=== PATIENT | female | born 1955 | race Caucasian/White ===

== ENCOUNTER 2019-06-08 13:09 | Inpatient (IN) | payer MEDICARE, MEDICAID ==
[~2019-06-08] VITALS: Ht 162.6 cm; Wt 100.2 kg
[2019-06-08 13:17] VITALS: BP 147/71
[2019-06-08] MEDS ORDERED: PROAIR HFA8.5 GM (13:29)
[2019-06-08] MEDS ORDERED: TRAMADOL 50 MG50 MG PO (13:29)
[2019-06-08] MEDS ORDERED: LISINOPRIL20 MG PO (13:29)
[2019-06-08] MEDS ORDERED: SYNTHROID75 MCG PO (13:29)
[2019-06-08] MEDS ORDERED: SINGULAIR 10 MG10 M1 PO (13:29)
[2019-06-08] MEDS ORDERED: ALBUTEROL2.5 MG/0.1 INH (13:30)
[2019-06-08] MEDS ORDERED: OMEPRAZOLE40 MG PO (13:30)
[2019-06-08] MEDS ORDERED: CYCLOBENZAPRINE5 MG PO (13:30)
[2019-06-08 13:52] LABS: ABSOLUTE EOSINOPHILS 0.2 thou/uL (0.0-0.7); ABSOLUTE LYMPHOCYTES 0.6 thou/uL (0.8-5.3); ABSOLUTE MONOCYTES 0.6 thou/uL (0.0-1.2); ABSOLUTE NEUTROPHILS 4.8 thou/uL (1.6-8.1); BASOPHILS 0.5 %; EOSINOPHILS 2.8 %; HEMATOCRIT 41.8 % (37.0-47.0); HEMOGLOBIN 14.1 gm/dL (12.0-15.0); MCH 31.3 pg (26.0-34.0); MCHC 33.7 g/dL (28.0-37.0); MCV 92.9 fL (80.0-100.0); MONOCYTES 9.7 %; MPV 7.9 fl. (7.2-11.1); NUCLEATED RBCS 0 /100WBC; PLATELET COUNT* 222 thou/uL (150-400); RDW-CV 15.1 % (10.5-14.5); WBC 6.2 thou/uL (4.0-11.0)
[2019-06-08 13:57] LABS: ANION GAP 9 mmol/L (7-16); BUN 11 mg/dL (7-18); CALCIUM 8.7 mg/dL (8.5-10.1); CHLORIDE 105 mmol/L (98-107); CO2 25 mmol/L (21-32); GLUCOSE 121 mg/dL (70-99); POTASSIUM 4.5 mmol/L (3.5-5.1); SODIUM 139 mmol/L (136-145)
[2019-06-08 13:59] LABS: APTT 23.8 Seconds (25.0-31.3); PROTIME 9.9 Seconds (9.20-11.50)
[2019-06-08 14:12] LABS: ALBUMIN 3.9 g/dL (3.4-5.0); ALKALINE PHOSPHATASE 66 U/L (46-116); CK-MB MASS 0.6 ng/mL (<0.5-3.6); NT-PRO BRAIN NAT PEPTIDE 31 pg/mL (<300); SGOT 37 U/L (15-37); SGPT 48 U/L (30-65); TOTAL BILIRUBIN 0.4 mg/dL (<0.1-1.0); TOTAL PROTEIN 7.2 g/dL (6.4-8.2); TROPONIN-I LEVEL <0.06 ng/mL (<0.06)
[2019-06-08 14:12] LABS: URINE BILIRUBIN NEGATIVE (Negative); URINE BLOOD NEGATIVE (Negative); URINE CLARITY CLEAR; URINE COLOR YELLOW; URINE GLUCOSE-RANDOM NEGATIVE (Negative); URINE KETONES NEGATIVE (Negative); URINE LEUKOCYTES-REFLEX NEGATIVE (Negative); URINE NITRITE-REFLEX NEGATIVE (Negative); URINE PROTEIN NEGATIVE (Negative); URINE SPECIFIC GRAVITY 1.015 (1.005-1.030); URINE UROBILINOGEN 0.2 E.U./dl (0.2-1.0)
--- NOTE | 2019-06-08 14:28 | EKG ---
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
[2019-06-08 15:45] VITALS: BP 119/64
[2019-06-08 16:06] LABS: HDL CHOLESTEROL 33 mg/dL (>40); TRIGLYCERIDE 118 mg/dL (<150); VLDL 24 mg/dL (<40)
[2019-06-08 16:10] LABS: CHOLESTEROL < 50 mg/dL (<200); LDL CHOLESTEROL -6 mg/dL (<100); SERUM ASSESSMENT Clear; TC:HDL 1.5 Ratio (Not establshd)
[2019-06-08 16:14] VITALS: BP 144/62
--- NOTE | 2019-06-08 16:48 | 2DMMODE ---
[place] [address] 2 D/M-MODE ECHOCARDIOGRAM Name: FITZ MANRIQUEZ Room: [address] [place] [facility]#: [id number] Admission: 06/08/19 Attend Phys: Patricia Santana, Discharge: Date of : 53 Date of Service: 06/08/19 1647 Report #: [id number] THIS REPORT FOR: //name// APPROVED REPORT Study performed: 06/08/2019 16:01:45 EXAM: Comprehensive 2D, Doppler, and color-flow Echocardiogram Patient Location: In-Patient Room #: 231 Status: routine BSA: 1.92 HR: 74 bpm BP: 119/64 mmHg Rhythm: NSR Other Information Study Quality: Technically Limited Indications CVA/TIA Echo Enhancing Agent Indication: Rule out Shunt Agent(s) / Amount(s) Used: Agitated Saline 10 cc Comments: Bubble study was technically difficult. Hard to see atrium 2D Dimensions IVSd: 11.68 (7-11mm) LVOT Diam: 19.11 (18-24mm) LVDd: 39.39 mm PWd: 10.69 (7-11mm) Ascending Ao: 31.78 (22-36mm) LVDs: 23.91 (25-40mm) Aortic Root: 31.55 mm Volumes Left Atrial Volume (Systole) LA ESV Index: 9.80 mL/m2 Aortic Valve AoV Peak John.: 1.15 m/s AO Peak Gr.: 5.28 mmHg LVOT Max P.24 mmHg AO Mean Gr.: 2.89 mmHg LVOT Mean P.86 mmHg LVOT Max V: 1.25 m/s AO V2 VTI: 18.57 cm LVOT Mean V: 0.78 m/[place] [address] 2 D/M-MODE ECHOCARDIOGRAM Name: FITZ MANRIQUEZ Room: [address] [place] .R.#: [id number] Admission: 06/08/19 Attend Phys: Patricia Santana, Discharge: Date of : 53 Date of Service: 06/08/19 1647 Report #: [id number] ZAIN (VTI): 3.38 cm2 LVOT V1 VTI: 21.90 cm Mitral Valve E/A Ratio: 0.73 MV Decel. Time: 229.99 ms MV E Max John.: 0.54 m/s MV PHT: 66.70 ms MVA (PHT): 3.30 cm2 TDI E/Lateral E': 5.40 E/Medial E': 5.40 Medial E' John.: 0.10 m/s Lateral E' John.: 0.10 m/s Pulmonary Valve PV Peak John.: 0.90 m/s PV Peak Gr.: 3.21 mmHg Left Ventricle The left ventricle is normal size. There is normal LV segmental wall motion. There is normal left ventricular wall thickness. Left ventricular systolic function is normal. The left ventricular ejection fraction is within the normal range. LVEF is 60-65%. Grade I - abnormal relaxation pattern. Right Ventricle The right ventricle is normal size. The right ventricular systolic function is normal. Atria The left atrium size is normal. Interatrial septum is intact without evidence of ASD or PFO. The right atrium size is normal. Aortic Valve The aortic valve is not well visualized. No aortic regurgitation is present. There is no aortic valvular stenosis. Mitral Valve The mitral valve is normal in structure. There is no mitral valve regurgitation noted. No evidence of mitral valve stenosis. Tricuspid Valve The tricuspid valve is normal in structure. There is no tricuspid valve regurgitation noted. Pulmonic Valve Pulmonic valve is not well visualized. There is no pulmon[place] [address] 2 D/M-MODE ECHOCARDIOGRAM Name: FITZ MANRIQUEZ Room: [address] [place] M.R.#: [id number] Admission: 06/08/19 Attend Phys: Patricia Santana, Discharge: Date of : 53 Date of Service: 06/08/19 1647 Report #: [id number] regurgitation. Great Vessels The aortic root is normal in size. IVC is normal in size and collapses >50% with inspiration. Pericardium There is no pericardial effusion. <Conclusion> LVEF is 60-65%. Interatrial septum is intact without evidence of ASD or PFO. <ELECTRONICALLY SIGNED> By: Mani Luo MD, FACC 06/08/19 164 46 46 Mani Luo MD, FACC /INF
--- NOTE | 2019-06-08 18:12 | NUR ---
PT A/O, NIH 0. TELE TRACKING SR AND ALL VSS ON ROOM AIR. DENIES CP, SOA. PASSED NURSING BEDSIDE SWALLOW. EDUCATED ON SAFETY AND PLAN OF CARE. PLEASE SEE ASSESSMENTFOR ADDITIONAL INFORMATION. WILL CONT TO MONITOR
[2019-06-08 19:05] VITALS: BP 149/82
[2019-06-09] VITALS: BP 113/44
[2019-06-09 04:00] VITALS: BP 128/55
[2019-06-09 04:47] LABS: HEMOGLOBIN 13.7 gm/dL (12.0-15.0); MCH 30.9 pg (26.0-34.0); MCHC 33.3 g/dL (28.0-37.0); MCV 92.8 fL (80.0-100.0); MPV 7.8 fl. (7.2-11.1); RBC 4.41 mil/uL (4.20-5.00); RDW-CV 15.7 % (10.5-14.5); WBC 5.8 thou/uL (4.0-11.0)
[2019-06-09 05:06] LABS: CALCIUM 8.7 mg/dL (8.5-10.1); MAGNESIUM 1.9 mg/dL (1.8-2.4); POTASSIUM 3.8 mmol/L (3.5-5.1)
[2019-06-09 05:10] LABS: GLYCOHEMOGLOBIN (HGB A1C) 5.4 % (4.8-5.6)
--- NOTE | 2019-06-09 05:13 | NUR ---
ASSUMED CARE OF PT AT 1900. PT IS ALERT AND ORIENTED. VSS. PERRLA. NO COMPLAINTS OF PAIN. NIH IS 0. PT IS IN SINUS RYTHM ON THE TELEMETRY. PT IS RESTING COMFORTABLY IN BED. RESPIRATIONS ARE EVEN AND NONLABORED. WILL CONTINUE TO MONITOR PT.
[2019-06-09 08:00] VITALS: BP 137/67
[2019-06-09 12:00] VITALS: BP 145/67
--- NOTE | 2019-06-09 12:32 | NUR ---
ASSUMED PT CARE AT 0800, AOX4, UP SBA, O2 SAT 90'S RA. TRACING SR ON TELE. DENIES PAIN. NIH SCORE O. FOR OT/PT, FOR US CAROTID. LAST BM 06/08/19. VSS, AM ASSESSMENT CHARTED. MEDS GIVEN PER MAR. HOURLY ROUNDING, CALL LIGHT WITHIN REACH. WILL CONTINUE TO MONITOR.
[2019-06-09 17:46] VITALS: BP 119/64
[2019-06-09 23:45] VITALS: BP 102/52
[2019-06-10 03:30] VITALS: BP 108/48
[2019-06-10 04:38] LABS: CHOLESTEROL 123 mg/dL (<200); HDL CHOLESTEROL 28 mg/dL (>40); LDL CHOLESTEROL 67 mg/dL (<100); TC:HDL 4.4 Ratio (Not establshd); TRIGLYCERIDE 140 mg/dL (<150); VLDL 28 mg/dL (<40)
[2019-06-10 04:40] LABS: SERUM ASSESSMENT Clear
[2019-06-10 07:00] VITALS: BP 157/72
--- NOTE | 2019-06-10 07:33 | NUR ---
PT CARE ASSUMED AT 1930. SAT MAINTAINED IN RA. ALERT AND ORIENTED X4. CALL LIGHT WITHIN REACH AND BED IN LOW POSITION. DENIES PAIN AND SOB. HOURLY ROUNDING DONE FOR PT SAFETY.
--- NOTE | 2019-06-10 09:30 | NUR ---
INITAL ASSESSMENT COMPLETED CHARTED. VSS. TRACING SR ON MONITOR. PT DENIES PAIN, SOA, CP, N/V/D. HOURLY ROUNDING IN PLACE FOR PT SAFETY. CLWR.
[2019-06-10] MEDS ORDERED: ASPIRIN325 PO (10:27)
[2019-06-10 11:40] VITALS: BP 157/72
== END 2019-06-10 12:15 | disposition home or self-care (01) | DRG 64 ==
LOC: M.ERS 13:09 → M.2W 14:49 → M.TBA-ER 14:49 → M.2W 15:59
PROVIDERS: Family Medicine; ADMIT Internal Medicine
DX: I63.9 Cerebral infarction, unspecified (principal); G93.41 Metabolic encephalopathy; J45.909 Unspecified asthma, uncomplicated; E03.9 Hypothyroidism, unspecified; I10 Essential (primary) hypertension; F17.210 Nicotine dependence, cigarettes, uncomplicated; Z88.6 Allergy status to analgesic agent; Z88.8 Allergy status to other drugs, medicaments and biological substances; Z82.49 Family history of ischemic heart disease and other diseases of the circulatory system; Z90.49 Acquired absence of other specified parts of digestive tract; Z79.82 Long term (current) use of aspirin; Z79.899 Other long term (current) drug therapy